=== PATIENT | male | born 1980 | race Caucasian/White ===

== ENCOUNTER 2017-01-02 11:56 | Emergency (ER) | payer BC ==
[~2017-01-02] VITALS: Ht 180.3 cm; Wt 119.7 kg
[2017-01-02 12:09] VITALS: TEMP 36.9; Ht 180.3 cm; Wt 119.7 kg
[2017-01-02] MEDS ORDERED: MUPIROCIN 2% OINT 22 GM TUBE EXT STA (12:17)
[2017-01-02] MEDS ORDERED: LIDOCAINE HCL 2% JELLY 30 ML TUBE EXT STA (12:18)
[2017-01-02] MEDS ORDERED: LIDOCAINE HCL 2% JELLY 30 ML TUBE EXT ONE (12:19)
--- NOTE | 2017-01-02 12:55 | EMERGENCY ROOM VISIT NOTE ---
ED Visit Note First contact with patient: 12:10 CHIEF COMPLAINT: Left leg pain, abrasion HISTORY OF PRESENT ILLNESS: This 36-year-old male patient presents to the emergency department, ambulatory, complaining of left leg pain, bleeding, and bruising which began approximately 20-30 minutes prior to arrival while at work. 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 He states he slipped into the crack between the truck and the dock , and got his left leg large in this gap. The leg did get lodged up just above the knee. He states he was struck between the truck and the dock for a few minutes prior to being able to get out of the hole. He is now complaining of severe pain on the medial aspect of the knee as well as radiating up into the medial aspect of the thigh and down into the medial calf. The patient denies any decreased mobility, and is able to bear weight. He states any pressure does irritate the wound. The patient does state that the wound has been mostly numb and mildly tingling. He is concerned about the numbness. The patient denies any fever, significant bleeding, or other concerning symptoms. The patient's tetanus vaccination is up-to-date. REVIEW OF SYSTEMS: A 6 system review of systems was performed with positives and pertinent negatives listed in the history of present illness. All other systems were reviewed and are negative. ALLERGIES: None MEDICATIONS: None PMH: None SOCIAL HISTORY: The patient lives locally with family. He denies drug, alcohol , tobacco use. PHYSICAL EXAM: VITALS: Vitals are noted on the nurse's note and reviewed by myself. Vital signs stable. GENERAL: This is a 36-year-old white male, in no acute distress, nondiaphoretic , well-developed well-nourished. SKIN: There is a abrasion noted on the medial aspect of the left lower extremity , just distal to the knee. This is actively bleeding, but the bleeding is mild. This does not appear to be deep or into the subcutaneous tissue or musculature. There are no significant blood vessels involved. The patient does have tenderness on palpation of this area, but states it is superficial and localized to the abrasion. He does report some numbness in the area, but does have sensation to sharp touch. There is some mild erythema radiating up the medial aspect of the leg toward the distal thigh, as well as radiating down to approximately mid calf. There is some mild erythema and a very superficial abrasion on the lateral calf. Capillary refill less than 2 seconds. No other bruises, rashes, or edema noted. MUSCULOSKELETAL: The left knee is mildly swollen with traumatic abrasion as noted previously. There is no ecchymosis. There is no joint effusion present. The patient is tender on the medial aspect of the knee, overlying the abrasion. There is no joint line tenderness. The patella does appropriately subluxate. Range of motion is full. There is no tenderness on deep, bony palpation of the knee. Strength of the quads and hamstrings is 5/5. Ronnie's is negative. Hemal's and Anterior Drawer tests are negative. There is no discomfort with varus and valgus stressing. The foot and toes are warm and well-perfused. Dorsalis pedis pulse 2+. Sensation to pain and light touch is intact. EMERGENCY DEPARTMENT COURSE: The patient was seen and evaluated as above. I do not suspect bony fracture or injury based on the patient's mechanism of injury and his current complaints. Lidocaine 2% jelly was placed on the abrasion to help with anesthesia. The patient did note significant improvement with this medication. After appropriate anesthesia and approximately 20 minutes, the wounds were cleaned with sterile saline solution and gauze. The wounds were thoroughly irrigated with sterile saline solution. They were scrubbed with gauze to ensure that they were clean. A thin layer ectropion ointment was applied to the wound, and the wound was dressed with a gauze bandage. The patient was advised of when to follow-up with workman's comp as well as when to return to the emergency department. He was encouraged to watch for any redness , swelling, severe pain, or other concerning symptoms. If these occur, he was instructed on returning immediately to the emergency department for possible antibiotics. All questions were answered to the patient's satisfaction. I did advise him that if he did nerve damage from the abrasion, it could take several weeks to months for the sensation to return. Discharge instructions were reviewed and the patient was discharged home in good condition. I attest that I have personally reviewed the patient's current medication list. Patient was found to have normal blood pressure on screening and does not require follow-up. DIFFERENTIAL DIAGNOSIS: Abrasion, fracture, contusion, laceration, superficial nerve damage, cellulitis, abscess, and others DIAGNOSIS: Left lower extremity abrasion Current/Historical Medications No Active Prescriptions or Reported Meds Allergies Coded Allergies: No Known Allergies (Unverified , 01/02/17) Vital Signs Date Time Temp Pulse Resp B/P (MAP) Pulse Ox O2 Delivery O2 Flow Rate FiO2 01/02/17 13:05 85 16 138/74 95 01/02/17 12:09 36.9 83 18 117/77 93 Room Air Medications Administered Medications (Trade) Dose Ordered Sig/Susan Route Start Time Stop Time Status Last Admin Dose Admin Lidocaine HCl (Xylocaine Jelly 2%) 1 ml NOW STAT EXT 01/02/17 12:18 01/02/17 12:19 DC 01/02/17 12:18 1 ML Departure Information Impression Primary Impression: Abrasion, left lower leg, initial encounter Dispostion Home / Self-Care Condition GOOD Prescriptions No Active Prescriptions or Reported Meds Referrals No Doctor, Assigned (PCP) Patient Instructions ED Abrasion, [facility] Additional Instructions You were seen in the emergency department today for an abrasion of the left lower leg. As discussed, I suspect the numbness is related to some nerve damage which occurred with the injury. Is no bony tenderness, so I do not feel that an x-ray is necessary at this time. You have been prescribed Bactroban (mupirocin) Ointment. This is an antibiotic ointment that will help to prevent the development of an infection at the site of the abrasion. Clean the wound with soap and water, and apply a thin layer of the ointment, followed by a bandage twice daily for 7-10 days or until the wound has healed. Please follow up with your Workmen's Comp. physician in 2-3 days for recheck and further management. Please return to the emergency department for any significant redness, worsening pain, swelling, streaking, fever, chills, nausea, vomiting, or other concerning symptoms.
[2017-01-02 13:05] VITALS: BP 138/74; PULSE 85; O2SAT 95
== END 2017-01-02 13:07 | disposition home or self-care (01) ==
LOC: C.EDB 11:59 → C.EDD 13:07
DX: S80.812A Abrasion, left lower leg, initial encounter (principal); W01.0XXA Fall on same level from slipping, tripping and stumbling without subsequent striking against object, initial encounter

== ENCOUNTER 2017-04-24 20:42 | Emergency (ER) | payer BC, OTHER ==
[~2017-04-24] VITALS: Ht 180.3 cm; Wt 99.7 kg
[2017-04-24 20:48] VITALS: Ht 180.3 cm; Wt 99.7 kg
[2017-04-24 21:35] VITALS: O2SAT 95
[2017-04-24] MEDS ORDERED: OXYM0.0592 (21:40)
[2017-04-24] MEDS ORDERED: ACETAMINOPHEN IV 100 ML IV STA (22:07)
[2017-04-24] MEDS ORDERED: SODIUM CHLORIDE 0.9% 1000ML 2,000 ML IV STA (22:07)
[2017-04-24] MEDS ORDERED: OPTIRAY 320 IV PRN (22:15)
[2017-04-24 22:30] LABS: ALBUMIN 3.6 gm/dl (3.4-5.0); ALT/SGPT 197 U/L (12-78); BLOOD UREA NITROGEN 18 mg/dl (7-18); CALCIUM 9.2 mg/dl (8.5-10.1); CARBON DIOXIDE 22 mmol/L (21-32); CREATININE 1.37 mg/dl (0.60-1.40); GLUCOSE 176 mg/dl (70-99); LIPASE 161 U/L (73-393); POTASSIUM 3.2 mmol/L (3.5-5.1); SODIUM 138 mmol/L (136-145)
[2017-04-24 22:36] LABS: ALKALINE PHOSPHATASE 361 U/L (45-117); AST/SGOT 68 U/L (15-37); TOTAL PROTEIN 7.6 gm/dl (6.4-8.2)
--- NOTE | 2017-04-24 22:46 | DIAGNOSTIC IMAGING REPORT ---
CHEST ONE VIEW PORTABLE CLINICAL HISTORY: Chest pain. Left arm pain. COMPARISON STUDY: No previous studies for comparison. FINDINGS: Lung volumes are diminished. Linear bibasilar opacities suggest atelectasis. There is no consolidation. There is no evidence for pulmonary edema. Cardiac size is difficult to assess on this exam but likely at the upper limits of normal. No pneumothorax or pleural effusion is noted. IMPRESSION: 1. No acute cardiopulmonary findings. 2. Diminished lung volumes with linear bibasilar opacities suggestive of atelectasis. Electronically signed by: Wyatt Maciel M.D. 04/24/2017 10:45 PM Dictated Date/Time: 04/24/2017 10:44 PM
--- NOTE | 2017-04-24 23:23 | DIAGNOSTIC IMAGING REPORT ---
CT ANGIOGRAPHY OF THE CHEST, PULMONARY EMBOLUS PROTOCOL CLINICAL HISTORY: Tachycardia, hypoxia and pleurisy. COMPARISON STUDY: Chest radiograph performed earlier today. TECHNIQUE: Following IV administration of 94 mL of Optiray-320, helical axial images of the chest were obtained utilizing the pulmonary embolus protocol. Maximal intensity projections and sagittal and coronal reformats were viewed on an independent 3D workstation. IV contrast was administered without complication. A dose lowering technique was utilized adhering to the principles of ALARA. CT DOSE: 713.68 mGy.cm FINDINGS: No pulmonary emboli are identified although sensitivity is diminished given suboptimal opacification and respiratory motion artifact. The size pf the heart is normal. There is no evidence for thoracic aortic dissection. Prominent bilateral axillary lymph nodes are noted. However, these contain fatty fabio and are likely benign. There is a borderline enlarged subcarinal lymph node that measures 1 cm in short axis diameter. There is no pericardial effusion. Linear opacities suggest atelectasis. There is no consolidation to suggest pneumonia. There is are mild groundglass opacities with mosaic attenuation. No pneumothorax or pleural effusion is noted. Visualized portions of the upper abdomen demonstrate suspected fatty infiltration of the liver and probable hepatomegaly. Moderate to severe splenomegaly is partially imaged. There is trace infiltration along the medial aspect of the spleen, partially imaged on this exam. IMPRESSION: 1. No central or lobar pulmonary emboli. Segmental and subsegmental pulmonary arteries suboptimally assessed due to suboptimal opacification and respiratory motion artifact. 2. Moderate to severe splenomegaly, a nonspecific finding, and minimal infiltration along the medial aspect of the spleen. These findings are partially imaged on this exam. The findings could be correlated with abdominal pain and a CT could be obtained. 3. Fatty infiltration of the liver and suspected hepatomegaly. 4. Linear bilateral opacities suggestive atelectasis. No consolidation to suggest pneumonia. 5. Borderline enlarged subcarinal lymph node, a nonspecific finding. Electronically signed by: Wyatt Maciel M.D. 04/24/2017 11:22 PM Dictated Date/Time: 04/24/2017 11:12 PM
[2017-04-24 23:27] LABS: HEMATOCRIT 35.4 % (42-52); HEMOGLOBIN 12.1 g/dL (14.0-18.0); MEAN CELL VOLUME 80.3 fL (80-100); MEAN CORPUSCULAR HEMOGLOBIN 27.4 pg (25-34); MEAN CORPUSCULAR HGB CONC 34.2 g/dl (32-36); MEAN PLATELET VOLUME 8.3 fL (7.4-10.4); PLATELET COUNT 18 K/uL (130-400); RED CELL DISTRIBUTION WIDTH CV 15.1 % (11.5-14.5); RED CELL DISTRIBUTION WIDTH SD 44.7 fL (36.4-46.3); WHITE BLOOD COUNT 114.56 K/uL (4.8-10.8)
--- NOTE | 2017-04-25 | Medical Consult ---
Consultation Note Date of Service Apr 24, 2017. Consultation Note I was called by the lab at 1110 PM for a peripheral smear with blasts. I arrived at the hospital at 1135. I reviewed Cellavision images and the smear. There are numerous blasts present indicative of acute leukemia. Total white count is over 100.000. I phoned these results to Dr. Mihcael in the ED at 1145PM. I advised that we could send flow cytometry for further work up but it would not go out to the reference lab until morning. However, it is likely he will be transferred to tertiary care facility. We can always order it in the morning if the patient is staying here as the specimen can't go to the reference lab until tomorrow anyway. Raymond Kasper MD
[2017-04-25] MEDS ORDERED: SODIUM CHLORIDE 0.9% 1000ML 1,000 ML IV STA ×3 (00:01→01:28)
[2017-04-25] MEDS ORDERED: ALLOPURINOL 300 MG TAB PO STA (00:01)
[2017-04-25 00:15] LABS: URIC ACID 8.3 mg/dl (2.6-7.2)
--- NOTE | 2017-04-25 01:03 | EMERGENCY ROOM VISIT NOTE ---
History Report prepared by Adin: Reny Orozco Under the Supervision of: Dr. Joaquin Michael M.D. First contact with patient: 21:46 Chief Complaint: PAIN (GENERALIZED) Stated Complaint: PAIN IN L ARM,BACK AND STOMACH History of Present Illness The patient is a 37 year old male who presents to the Emergency Room with complaints of persistent left upper chest pain starting around 1800 today. The patient first noticed the pain after getting out of the shower. He also reports pain in his left arm, left upper back, and neck. He has never had this before. The pain worsens with deep breaths. He took 600 mg of ibuprofen at 1900 to no significant relief. He has been coughing up some sputum with blood for the past couple of days. He is recently getting over the flu. He has had a decreased appetite and has not been eating normally. He has been drinking fluids. He has a rash on his leg which is not itchy. He feels some swelling in the glands in his neck. He denies any fever, chills, nose bleeds, or nausea. He denies any history of blood clots or cancer. He denies any family history of heart attacks at a young age. He denies any recent surgery or trips. He is not on any medications. Source of History: patient Onset: 1800 today Position: chest (left upper) Quality: other (pain) Timing: other (persistent) Modifying Factors (Worsening): breathing (deeply) Associated Symptoms: + cough, + neck pain, + back pain, + rash, No fevers, No chills, No nausea Review of Systems See HPI for pertinent positives and negatives. A total of ten systems were reviewed and were otherwise negative. Past Medical & Surgical No history of blood clots or cancer. Family History No family history of heart attacks at a young age. Social History Smoking Status: Never Smoker Occupation Status: employed Current/Historical Medications Miscellaneous Medications Oxymetazoline Hcl (Nasal [place]) Allergies Coded Allergies: No Known Allergies (Unverified , 04/24/17) Physical Exam Vital Signs Date Time Temp Pulse Resp B/P (MAP) Pulse Ox O2 Delivery O2 Flow Rate FiO2 04/25/17 02:27 36.8 108 16 129/93 96 04/25/17 02:23 108 16 129/93 96 Nasal Cannula 2.0 04/25/17 00:58 96 Nasal Cannula 2.0 04/25/17 00:57 111 18 150/85 93 Room Air 04/24/17 23:08 92 18 128/79 95 Room Air 04/24/17 22:44 99 20 152/120 98 Room Air 04/24/17 21:53 108 04/24/17 21:35 95 Room Air 04/24/17 20:48 36.8 136 20 151/85 96 Room Air Physical Exam GENERAL: Awake, fatigued and uncomfortable-appearing, in no distress HENT: Normocephalic, atraumatic. Dry mucous membranes. EYES: Normal conjunctiva. Sclera non-icteric. NECK: Supple. No nuchal rigidity. FROM. No JVD. RESPIRATORY: Clear to auscultation. CARDIAC: Regular rate, normal rhythm. Extremities warm and well perfused. Pulses equal. ABDOMEN: Soft, non-distended. No tenderness to palpation. No rebound or guarding. No masses. RECTAL: Deferred. MUSCULOSKELETAL: Reproducible anterior and left upper chest wall tenderness to palpation. The back is symmetrical on inspection without obvious abnormality. There is no CVA tenderness to palpation. No joint edema. LOWER EXTREMITIES: Calves are equal size bilaterally and non-tender. No edema. No discoloration. NEURO: Normal sensorium. No sensory or motor deficits noted. SKIN: No rash or jaundice noted. Medical Decision & Procedures ER Provider Diagnostic Interpretation: Xray results as stated below per my and radiologist interpretation. Radiology results as stated below per my review and radiologist interpretation: CHEST ONE VIEW PORTABLE CLINICAL HISTORY: Chest pain. Left arm pain. COMPARISON STUDY: No previous studies for comparison. FINDINGS: Lung volumes are diminished. Linear bibasilar opacities suggest atelectasis. There is no consolidation. There is no evidence for pulmonary edema. Cardiac size is difficult to assess on this exam but likely at the upper limits of normal. No pneumothorax or pleural effusion is noted. IMPRESSION: 1. No acute cardiopulmonary findings. 2. Diminished lung volumes with linear bibasilar opacities suggestive of atelectasis. Electronically signed by: Wyatt Maciel M.D. 04/24/2017 10:45 PM Dictated Date/Time: 04/24/2017 10:[address] ANGIOGRAPHY OF THE CHEST, PULMONARY EMBOLUS PROTOCOL CLINICAL HISTORY: Tachycardia, hypoxia and pleurisy. COMPARISON STUDY: Chest radiograph performed earlier today. TECHNIQUE: Following IV administration of 94 mL of Optiray-320, helical axial images of the chest were obtained utilizing the pulmonary embolus protocol. Maximal intensity projections and sagittal and coronal reformats were viewed on an independent 3D workstation. IV contrast was administered without complication. A dose lowering technique was utilized adhering to the principles of ALARA. CT DOSE: 713.68 mGy.cm FINDINGS: No pulmonary emboli are identified although sensitivity is diminished given suboptimal opacification and respiratory motion artifact. The size pf the heart is normal. There is no evidence for thoracic aortic dissection. Prominent bilateral axillary lymph nodes are noted. However, these contain fatty fabio and are likely benign. There is a borderline enlarged subcarinal lymph node that measures 1 cm in short axis diameter. There is no pericardial effusion. Linear opacities suggest atelectasis. There is no consolidation to suggest pneumonia. There is are mild groundglass opacities with mosaic attenuation. No pneumothorax or pleural effusion is noted. Visualized portions of the upper abdomen demonstrate suspected fatty infiltration of the liver and probable hepatomegaly. Moderate to severe splenomegaly is partially imaged. There is trace infiltration along the medial aspect of the spleen, partially imaged on this exam. IMPRESSION: 1. No central or lobar pulmonary emboli. Segmental and subsegmental pulmonary arteries suboptimally assessed due to suboptimal opacification and respiratory motion artifact. 2. Moderate to severe splenomegaly, a nonspecific finding, and minimal infiltration along the medial aspect of the spleen. These findings are partially imaged on this exam. The findings could be correlated with abdominal pain and a CT could be obtained. 3. Fatty infiltration of the liver and suspected hepatomegaly. 4. Linear bilateral opacities suggestive atelectasis. No consolidation to suggest pneumonia. 5. Borderline enlarged subcarinal lymph node, a nonspecific finding. Electronically signed by: Wyatt Maciel M.D. 04/24/2017 11:22 PM Dictated Date/Time: 04/24/2017 11:12 PM Laboratory Results 04/24/17 21:35 Red Blood Count 4.41, Mean Corpuscular Volume 80.3, Mean Corpuscular Hemoglobin 27.4, Mean Corpuscular Hemoglobin Concent 34.2, Mean Platelet Volume 8.3 04/24/17 21:35 Test 04/24/17 21:35 04/25/17 00:48 White Blood Count 114.56 K/uL (4.8-10.8) Red Blood Count 4.41 M/uL (4.7-6.1) Hemoglobin 12.1 g/dL (14.0-18.0) Hematocrit 35.4 % (42-52) Mean Corpuscular Volume 80.3 fL (80-100) Mean Corpuscular Hemoglobin 27.4 pg (25-34) Mean Corpuscular Hemoglobin Concent 34.2 g/dl (32-36) Platelet Count 18 K/uL (130-400) Mean Platelet Volume 8.3 fL (7.4-10.4) RDW Standard Deviation 44.7 fL (36.4-46.3) RDW Coefficient of Variation 15.1 % (11.5-14.5) Neutrophils % (Manual) 2.4 % Lymphocytes % (Manual) 11.3 % Blast Cells % 86.3 % Neutrophils # (Manual) 2.75 K/uL (1.4-6.5) Total Absolute Neutrophils 2.75 K/uL (1.4-6.5) Lymphocytes # (Manual) 12.95 K/uL (1.2-3.4) Total Absolute Lymphocytes 12.95 K/uL (1.2-3.4) Blast Cells # 98.87 K/uL (0-0) Blood Smear Review Anion Gap 11.0 mmol/L (3-11) Est Creatinine Clear Calc Drug Dose 89.7 ml/min Estimated GFR () 76.4 Estimated GFR (Non- 65.9 BUN/Creatinine Ratio 12.9 (10-20) Uric Acid 8.3 mg/dl (2.6-7.2) Calcium Level 9.2 mg/dl (8.5-10.1) Total Bilirubin 0.9 mg/dl (0.2-1) Direct Bilirubin 0.4 mg/dl (0-0.2) Aspartate Amino Transf (AST/SGOT) 68 U/L (15-37) Alanine Aminotransferase (ALT/SGPT) 197 U/L (12-78) Alkaline Phosphatase 361 U/L (45-117) Troponin I < 0.015 ng/ml (0-0.045) Pro-B-Type Natriuretic Peptide 19 pg/ml (0-450) Total Protein 7.6 gm/dl (6.4-8.2) Albumin 3.6 gm/dl (3.4-5.0) Lipase 161 U/L (73-393) Prothrombin Time 10.7 SECONDS (9.0-12.0) Prothromb Time International Ratio 1.0 (0.9-1.1) Activated Partial Thromboplast Time 26.5 SECONDS (21.0-31.0) Partial Thromboplastin Ratio 1.0 Fibrinogen 456 mg/dl (184-400) Laboratory results reviewed by me Medications Administered Medications (Trade) Dose Ordered Sig/Susan Route Start Time Stop Time Status Last Admin Dose Admin Sodium Chloride 2,000 ml @ 999 mls/hr Q2H1M STAT IV 04/24/17 22:07 04/25/17 00:07 DC 04/24/17 22:33 999 MLS/HR Acetaminophen 100 ml @ 400 mls/hr NOW STAT IV 04/24/17 22:07 04/24/17 22:21 DC 04/24/17 22:32 400 MLS/HR Sodium Chloride 1,000 ml @ 999 mls/hr Q1H1M STAT IV 04/25/17 00:01 04/25/17 01:01 DC 04/25/17 00:54 999 MLS/HR Allopurinol (Zyloprim Tab) 300 mg NOW STAT PO 04/25/17 00:01 04/25/17 00:03 DC 04/25/17 00:51 300 MG Sodium Chloride 1,000 ml @ 125 mls/hr Q8H STAT IV 04/25/17 01:28 04/25/17 02:49 DC 04/25/17 01:43 125 MLS/HR ECG Per My Interpretation Indication: chest pain Rate (beats per minute): 116 Rhythm: sinus tachycardia Findings: RBBB (incomplete), no acute ischemic change, other (normal axis) ED Course 5: The patient was evaluated in room B6. A complete history and physical exam was performed. 2343: I spoke with the pathologist who reports the patient most likely has acute leukemia. 2345: I reevaluated the patient. I updated him on the results. 2354: I discussed the patient's case with Dr. Barksdale, [facility] medical oncology/hematology. He recommends transfer. 0003: I reevaluated the patient. I updated him on the results. He is agreeable to being transferred to [facility]. 0023: I discussed the patient's case with Dr. Sutherland, [facility] oncology. The patient has been accepted for transfer. Medical Decision I reviewed the patient's past medical history, medications, and the nursing notes as described above. Differential diagnosis: Etiologies such as cardiac ischemia, aortic dissection, pulmonary embolism, pneumonia, pneumothorax, musculoskeletal, infections, pericarditis, myocarditis , esophageal rupture, gastrointestinal, cancer, as well as others were entertained. The patient is a 37-year-old gentleman who presents to the emergency department with cough congestion, shortness of breath over the past 5 days evolving to left -sided chest pain, neck pain, shoulder pain per hpi. On arrival the patient is fatigued appearing and uncomfortable but no acute distress, heart rate tachycardic in the 120s, vital signs otherwise stable. Exam patient has reproducible anterior left upper chest wall tenderness to palpation. EKG is sinus tachycardia with incomplete right bundle branch block but otherwise no acute ischemia. He does have scant petechiae in the lower extremities as well. Labs concerning with WBC 114K. Pathologist called in for smear review and confirms smear c/w Leukemia with ~70% blasts. CT PE was negative for PE however did demonstrate lymphadenopathy with a 1 cm enlarged lymph node adjacent to the roma as well as bilateral axillary lymphadenopathy. Case was discussed with Dr. Barksdale, [place] [facility] secondary connector armature, recommends transfer to tertiary care facility to facilitate prompt evaluation and treatment. Additionally recommends sending uric acid and beginning allopurinol and ensuring adequate hydration. Case was discussed with [facility], oncology, Dr. Sutherland, accepts the patient for transfer. Unfortunately no inpatient beds are available at this time however the patient was accepted for ED-to-ED transfer by Dr. Moore, ED physician. Medication Reconcilliation Current Medication List: was personally reviewed by me Blood Pressure Screening Patient's blood pressure: Elevated blood pressure Blood pressure disposition: Elevated BP felt to be situational Consults Time Called: 2344 Consulting Physician: Dr. Keller, [facility] medical oncology/ hematology Returned Call: [phone] I discussed the patient's case with him. He recommends transfer. Additional Consults: Time Called: 0005 Consulted Physician: Dr. Sutherland, [facility] oncology Returned Call: [phone] Additional Comments: I discussed the patient's case with her. The patient has been accepted for transfer. Impression Primary Impression: Acute leukemia Scribe Attestation The scribe's documentation has been prepared under my direction and personally reviewed by me in its entirety. I confirm that the note above accurately reflects all work, treatment, procedures, and medical decision making performed by me. Departure Information Dispostion Transfer Acute Care Facility Referrals No Doctor, Assigned (PCP) Patient Instructions My [facility]
[2017-04-25 01:54] LABS: PTT PATIENT 26.5 SECONDS (21.0-31.0)
[2017-04-25 02:27] VITALS: BP 129/93; PULSE 108; TEMP 36.8; O2SAT 96
== END 2017-04-25 02:27 | disposition short-term general hospital (02) ==
LOC: C.EDB 20:44
DX: C95.00 Acute leukemia of unspecified cell type not having achieved remission (principal); R91.8 Other nonspecific abnormal finding of lung field; R00.0 Tachycardia, unspecified; I45.10 Unspecified right bundle-branch block